=== PATIENT | female | born 1930 | race Caucasian/White ===

== ENCOUNTER 2018-06-18 07:31 | Emergency (ER) | payer OTHER ==
[~2018-06-18] VITALS: Ht 165.1 cm; Wt 59.0 kg
[~2018-06-18 07:31] MED LIST: CARDIZEM60 M1 PO; ELIQUIS2.5 M1 PO; FOLIC ACID1 M1 PO; METOPROLOL SUCC25 M1 PO; ROZEREM8 M1 PO
--- NOTE | 2018-06-18 07:37 | ED GENERAL ADULT ---
History of Present Illness General Chief Complaint: Fall Stated Complaint: FALL Source: patient, family Exam Limitations: patient's age Vital Signs & Intake/Output Vital Signs & Intake/Output Vital Signs Date Time Temp Pulse Resp B/P B/P Pulse O2 O2 Flow FiO2 Mean Ox Delivery Rate 06/18 1222 97.0 62 18 144/66 06/18 0937 98.6 59 20 142/69 98 Room Air 06/18 0738 98.7 110 20 178/110 98 Room Air Allergies Coded Allergies: No Known Allergies (08/01/17) Reconcile Medications Amiodarone HCl 200 MG TABLET 0.5 TAB PO DAILY HEART (Reported) Apixaban (Eliquis) 2.5 MG TABLET 1 TAB PO BID A.FIB Metoprolol Tartrate 25 MG TABLET 1 TAB PO DAILY HEART (Reported) Metoprolol Tartrate 25 MG TABLET 0.5 TAB PO 1200,1800 HEART (Reported) Triage Nurses Notes Reviewed? yes Onset: Abrupt Duration: hour(s): Timing: recent history HPI: 87 year old female presents to the emergency department by ambulance after falling out of bed this morning. She is complaining of left shoulder and arm pain. She denies head injury or other complaints. She has a past medical history of dementia. She is pleasantly confused. Head to toe palpation over head neck and upper and lower extremities was unable to elicit significant tenderness other than minimal tenderness to the left anterior shoulder. She was given Tylenol. She has free range of motion of both arms and legs. Collaborative history was obtained with her daughter at the bedside. Past History Medical History Any Pertinent Medical History? see below for history Neurological: COGNITIVE IMPAIRMENT EENT: NONE Cardiovascular: NONE Respiratory: NONE Gastrointestinal: colitis, intermittent biliary colic Hepatic: NONE Renal: NONE Musculoskeletal: NONE Psychiatric: HALLUCINATIONS Endocrine: NONE Blood Disorders: NONE Cancer(s): NONE MACHINE OPERATOR PACKAGING/Reproductive: NONE History of MRSA: No History of VRE: No History of CDIFF: No Influenza Vaccine: 08/03/17 Surgical History Surgical History: incarcerated hernia Psychosocial History Who do you live with Spouse Services at Home None What is your primary language Georgian Family History Hx Contributory? No Review of Systems Review of Systems Constitutional: Denies: fever. EENTM: Denies: visual changes. Respiratory: Denies: short of breath. Cardiovascular: Denies: chest pain. GI: Denies: abdominal pain. Genitourinary: Reports: no symptoms. Musculoskeletal: Reports: see HPI. Skin: Reports: no symptoms. Neurological/Psychological: Reports: confusion, dementia. Hematologic/Endocrine: Reports: no symptoms. Immunologic/Allergic: Reports: no symptoms. Physical Exam Physical Exam General Appearance: alert, awake, anxious, mild distress Head: atraumatic, normal appearance Eyes: Bilateral: normal appearance, PERRL, EOMI. Ears, Nose, Throat: normal pharynx, normal ENT inspection Neck: normal inspection, supple, full range of motion Respiratory: normal breath sounds, chest non-tender Cardiovascular: regular rate/rhythm Peripheral Pulses: 4+ radial (R), 4+ radial (L) Gastrointestinal: soft, non-tender Back: decreased range of motion Extremities: tenderness (left anterior shoulder) Neurologic/Psych: awake, alert, confused Skin: intact, normal color, warm/dry Core Measures ACS in differential dx? No CVA/TIA Diagnosis: No Sepsis Present: No Sepsis Focused Exam Completed? No Progress Differential Diagnoses I considered the following diagnoses in my evaluation of the patient: Fracture, intracranial bleed, other occult trauma] Plan of Care: Orders Procedure Date/time Status CULTURE,URINE 06/18 942 Active URINALYSIS 06/18 942 Active TROPONIN LEVEL 06/18 942 Complete COMPREHENSIVE METABOLIC PANEL 06/18 942 Complete CBC WITHOUT DIFFERENTIAL 06/18 942 Complete EKG 06/18 0750 Active Laboratory Tests 06/18/18 1002: Anion Gap 10, Estimated GFR 42 L, BUN/Creatinine Ratio 20.0, Glucose 96, Calcium 9.1, Total Bilirubin 1.1, AST 19, ALT 25, Alkaline Phosphatase 41, Troponin I < 0.01, Total Protein 6.3, Albumin 3.6, Globulin 2.7, Albumin/ Globulin Ratio 1.3, CBC w Diff NO MAN DIFF REQ, RBC 3.93 L, MCV 90.3, MCH 30.6, MCHC 34.0, RDW 14.3, MPV 6.4 L, Gran % 55.7, Lymphocytes % 33.6, Monocytes % 10.1 H, Eosinophils % 0.2, Basophils % 0.4, Absolute Granulocytes 3.3, Absolute Lymphocytes 2.0, Absolute Monocytes 0.6, Absolute Eosinophils 0, Absolute Basophils 0 Microbiology 06/18 942 URINE ROUT: Urine Culture - ORD Initial ED EKG: AFIB Prior EKG: unchanged Departure Departure Disposition: HOME OR SELF CARE Condition: Stable Clinical Impression Primary Impression: Contusion of left shoulder Secondary Impressions: Dehydration, Dementia, Fall Referrals: Unknown Departure Forms: Customer Survey General Discharge Information Comments The patient has full range of motion of all joints. Left shoulder was placed in an arm sling to use as needed. Results of the CAT scan were reviewed with the daughter. She will follow these up with a primary care doctor. Copies of the labs and CAT scan worse to be sent by fax to her primary care doctor at the daughter's request. PATIENT: DEVIN KELLY PRESENT AGE: 87 PATIENT ACCOUNT NO: [id number] : [birth year] LOCATION: [facility] ORDERING PHYSICIAN: Ismael Harkins DO SERVICE DATE: 06/18/18 EXAM TYPE: CAT - CT CHEST WO IV CONTRAST EXAMINATION: CT CHEST WITHOUT CONTRAST CLINICAL INFORMATION: Fall, left-sided pain, dementia. COMPARISON: None TECHNIQUE: Multidetector volumetric CT imaging of the chest was done. Axial MIP volume rendering provided. Sagittal and coronal reformatted images were obtained. FINDINGS: LUNGS: Respiratory motion artifact degrading images. There is a solid mass in the superior segment of the left lower lobe measuring 1.4 x 1.2 x 1.3 cm. (AP, transverse, CC). Mild patchy scarring in bilateral lung apices. There is linear atelectasis/scarring in the right lower lobe. 2 mm nodule at the left fissure, image 27. Nonspecific interstitial prominence and groundglass opacities in bilateral lower lobes. MEDIASTINUM: Imaged portions of the neck, see CT cervical spine report. No pathologically enlarged lymph nodes are seen in the mediastinum or marcos. Mild cardiomegaly. Left-sided pacemaker/AICD, the leads extending to the right atrium and right ventricle. No pericardial effusion. Esophagus is decompressed. Mild to moderate atherosclerotic calcification of the aorta, of normal caliber. PLEURA: There is no pleural effusion. No pleural mass or thickening. AXILLA: No lymphadenopathy. CHEST WALL: Bilateral breast implants present. UPPER ABDOMEN: Multiple low-attenuation lesions in the liver. The larger lesions have measurements compatible with cysts. The largest lesion measures 2.6 cm. There are smaller lesions, too small to characterize. Visualized gallstone present. No acute findings seen in the pancreas, spleen. Adrenal glands are slightly bulky. No suspicious renal lesions are seen. The unenhanced spleen appears unremarkable. OSSEOUS STRUCTURES: Severe left glenohumeral joint arthritis. This is characterized by joint space loss, marginal osteophytes, prominent subchondral sclerosis and cystic change. Moderate left AC joint arthritis. Subacromial spurring. Superior migration of the left humeral head, suggesting tearing of the rotator cuff tendons. Calcifications superior to the greater tuberosity, may reflect calcific tendinitis or bursitis. No acute fractures identified of the left humerus or left scapula. Left clavicle appears intact. Partially imaged right shoulder joint demonstrates severe glenohumeral joint arthritis, moderate AC joint arthritis. The right scapula, right clavicle appear intact. No definite rib fractures seen. Scoliotic curvature of the spine. Bones are osteopenic. Multilevel moderate to severe disc degenerative changes in the thoracic and lumbar spine. See cervical spine report for the cervical findings. IMPRESSION: 1. Solid mass in the superior segment of the left lower lobe measuring 1.4 x 1.2 x 1.3 cm. Primary differential consideration is for carcinoma. Further evaluation as needed. Additional findings as detailed above. 2. Multiple low-attenuation liver lesions, larger lesions measurements compatible with cysts. Smaller lesions are too small to characterize. 3. Gallstone. 4. Severe bilateral glenohumeral joint arthritis. Moderate bilateral AC joint arthritis. Superior migration of the left humerus, suggesting tear of the rotator cuff tendons. Calcifications superior to the humeral head which may reflect calcific tendinitis or bursitis. 5. Multilevel moderate to severe disc degenerative changes visualized thoracic and lumbar spine. Bones are osteopenic. No acute fractures identified. DICTATED BY: Ja Murphy MD DATE/TIME DICTATED:06/18/18854 HIDE TANNER:SILVANO DATE/TIME TRANSCRIBED:06/18/18854 CONFIDENTIAL, DO NOT COPY WITHOUT APPROPRIATE AUTHORIZATION. <Electronically signed in Other Vendor System> SIGNED BY: Ja Murphy MD [id number] Critical Care Note Critical Care Note Critical Care Time: non-applicable
[2018-06-18] MEDS ORDERED: METOPROLOL TART25 M1 PO ×2 (08:08→08:09)
[2018-06-18] MEDS ORDERED: AMIODARONE HCL200 M2 PO (08:10)
--- NOTE | 2018-06-18 09:02 | CT SCAN REPORT ---
EXAMINATION: CT HEAD WITHOUT CONTRAST CT CERVICAL SPINE WITHOUT CONTRAST CLINICAL INFORMATION: Fall and pain. Assess for fracture. COMPARISON: CT scan of the head 08/01/2017. TECHNIQUE: Multidetector CT imaging of the head and cervical spine was performed without the use of intravenous contrast. Coronal and sagittal reformatted images were generated at the technologist workstation. DLP: 970.9 mGy-cm. FINDINGS: CT head: There is no evidence of acute intracranial hemorrhage or territorial infarction. No abnormal mass-effect or midline shift is seen. Godwin to white matter differentiation is well preserved. No extra-axial fluid collections are identified. There is mild commensurate prominence of ventricles and sulci consistent with mild diffuse volume loss.. There are no acute osseous findings. There have been bilateral lens extractions. There are no large scalp contusions or hematomas. The mastoid air cells are well-aerated. There is trace mucoperiosteal thickening in the inferior maxillary sinuses bilaterally. There is a secondary ostium in the medial wall of the right maxillary sinus. CT cervical spine: There is anatomic alignment of the vertebral bodies. There is severe spondylosis with narrowing of intervertebral disc height, degenerative endplate contour changes and sclerosis with marginal osteophytes, most prominent at C5-C6. There are multilevel facet arthropathic changes, and there appears to be partial fusion of the facets bilaterally at C7-T1.. There are no acute fractures and vertebral body heights are maintained. The lateral masses of C1 and C2 are normally aligned and the dens is intact. The atlantooccipital articulations appear normal. The craniocervical junction appears normal. No pneumothoraces are demonstrated. The paravertebral structures are unremarkable. A left pectoral pacemaker generator with 2 leads is partially demonstrated IMPRESSION: 1. There are no acute bleeds or territorial infarcts. There is diffuse volume loss. There are no acute osseous or soft tissue abnormalities. 2. There are multilevel spondylitic changes in the cervical spine. There are no acute fractures or subluxations.
--- NOTE | 2018-06-18 09:45 | CT SCAN REPORT ---
EXAMINATION: CT CHEST WITHOUT CONTRAST CLINICAL INFORMATION: Fall, left-sided pain, dementia. COMPARISON: None TECHNIQUE: Multidetector volumetric CT imaging of the chest was done. Axial MIP volume rendering provided. Sagittal and coronal reformatted images were obtained. FINDINGS: LUNGS: Respiratory motion artifact degrading images. There is a solid mass in the superior segment of the left lower lobe measuring 1.4 x 1.2 x 1.3 cm. (AP, transverse, CC). Mild patchy scarring in bilateral lung apices. There is linear atelectasis/scarring in the right lower lobe. 2 mm nodule at the left fissure, image 27. Nonspecific interstitial prominence and groundglass opacities in bilateral lower lobes. MEDIASTINUM: Imaged portions of the neck, see CT cervical spine report. No pathologically enlarged lymph nodes are seen in the mediastinum or marcos. Mild cardiomegaly. Left-sided pacemaker/AICD, the leads extending to the right atrium and right ventricle. No pericardial effusion. Esophagus is decompressed. Mild to moderate atherosclerotic calcification of the aorta, of normal caliber. PLEURA: There is no pleural effusion. No pleural mass or thickening. AXILLA: No lymphadenopathy. CHEST WALL: Bilateral breast implants present. UPPER ABDOMEN: Multiple low-attenuation lesions in the liver. The larger lesions have measurements compatible with cysts. The largest lesion measures 2.6 cm. There are smaller lesions, too small to characterize. Visualized gallstone present. No acute findings seen in the pancreas, spleen. Adrenal glands are slightly bulky. No suspicious renal lesions are seen. The unenhanced spleen appears unremarkable. OSSEOUS STRUCTURES: Severe left glenohumeral joint arthritis. This is characterized by joint space loss, marginal osteophytes, prominent subchondral sclerosis and cystic change. Moderate left AC joint arthritis. Subacromial spurring. Superior migration of the left humeral head, suggesting tearing of the rotator cuff tendons. Calcifications superior to the greater tuberosity, may reflect calcific tendinitis or bursitis. No acute fractures identified of the left humerus or left scapula. Left clavicle appears intact. Partially imaged right shoulder joint demonstrates severe glenohumeral joint arthritis, moderate AC joint arthritis. The right scapula, right clavicle appear intact. No definite rib fractures seen. Scoliotic curvature of the spine. Bones are osteopenic. Multilevel moderate to severe disc degenerative changes in the thoracic and lumbar spine. See cervical spine report for the cervical findings. IMPRESSION: 1. Solid mass in the superior segment of the left lower lobe measuring 1.4 x 1.2 x 1.3 cm. Primary differential consideration is for carcinoma. Further evaluation as needed. Additional findings as detailed above. 2. Multiple low-attenuation liver lesions, larger lesions measurements compatible with cysts. Smaller lesions are too small to characterize. 3. Gallstone. 4. Severe bilateral glenohumeral joint arthritis. Moderate bilateral AC joint arthritis. Superior migration of the left humerus, suggesting tear of the rotator cuff tendons. Calcifications superior to the humeral head which may reflect calcific tendinitis or bursitis. 5. Multilevel moderate to severe disc degenerative changes visualized thoracic and lumbar spine. Bones are osteopenic. No acute fractures identified.
--- NOTE | 2018-06-18 09:46 | CT SCAN REPORT ---
EXAMINATION: CT PELVIS WITHOUT CONTRAST CLINICAL INFORMATION: Fall, pain COMPARISON: None TECHNIQUE: Helical scanning was performed with submillimeter collimation through the pelvis. Sagittal and coronal multiplanar 2-D reconstructions were obtained. FINDINGS: Right total hip arthroplasty present. The arthroplasty components demonstrate usual position and alignment. Normal articulation of the arthroplasty components. There is beam hardening artifact from the arthroplasty components limiting evaluation. No definite acute periprosthetic fractures identified. There is heterotopic ossification present in the lateral soft tissues of the right hip. Moderate symphysis pubis generation. Moderate left hip joint arthritis. Mild bilateral SI joint arthritis. Bones are osteopenic. No acute pelvic fracture is seen. The pubic rami appear intact. No discrete fracture seen of the proximal left hip. Prominent degenerative changes in the visualized lower lumbar spine, with pseudoarticulation of the left L5 transverse process with the sacrum. Within the pelvis, there is sigmoid diverticulosis. Streak artifact from the hardware limiting the soft tissues. No gross bladder abnormalities seen. Pelvic structures are within normal caliber for age. No pathologically enlarged lymph nodes are seen. Small fat-containing partially imaged umbilical hernia. IMPRESSION: 1. Right total hip arthroplasty, with the associated beam hardening artifact. No acute periprosthetic fractures identified. 2. Moderate left hip arthritis. Mild bilateral SI joint arthritis. Degenerative changes lower lumbar spine. 3. No acute fractures otherwise identified.. Osteopenia limits evaluation. Clinical correlation and management is recommended, with additional/follow-up imaging as clinically warranted. 4. Additional findings and details in the body off the report.
[2018-06-18 10:10] LABS: ABSOLUTE BASOPHIL COUNT 0 /CUMM (0.0-0.2); ABSOLUTE EOSINOPHIL COUNT 0 /CUMM (0.0-0.7); ABSOLUTE GRANULOCYTE CT 3.3 /CUMM (1.4-6.5); ABSOLUTE MONOCYTE COUNT 0.6 /CUMM (0.10-0.60); BASOPHIL % 0.4 % (0.0-2.0); EOSINOPHIL % 0.2 % (0-5); GRANULOCYTE % 55.7 % (42.2-75.2); HEMATOCRIT 35.5 % (37-47); MEAN CORPUSCULAR HGB 30.6 PG (27.0-31.0); MEAN CORPUSCULAR VOLUME 90.3 FL (81.0-99.0); MEAN PLATELET VOLUME 6.4 FL (7.4-10.4); PLATELET COUNT 296 /CUMM (130-400); RBC DISTRIBUTION WIDTH 14.3 % (11.5-14.5); RED BLOOD CELL CT 3.93 /CUMM (4.20-5.40); WHITE BLOOD CELL COUNT 5.9 /CUMM (4.8-10.8)
[2018-06-18 12:22] VITALS: BP 144/66
== END 2018-06-18 12:23 ==
LOC: ERH 07:31
PROVIDERS: Emergency Medicine
DX: S40.012A Contusion of left shoulder, initial encounter (principal); E86.0 Dehydration; R41.0 Disorientation, unspecified; F03.90 Unspecified dementia, unspecified severity, without behavioral disturbance, psychotic disturbance, mood disturbance, and anxiety; Z79.01 Long term (current) use of anticoagulants; W06.XXXA Fall from bed, initial encounter; Y93.84 Activity, sleeping
CPT/HCPCS: 87086; 93005; 93010